=== PATIENT | female | born 1950 | race Caucasian/White ===

== ENCOUNTER 2016-12-15 20:35 | Emergency (ER) | payer MEDICARE, BC ==
[~2016-12-15] VITALS: Ht 165.1 cm; Wt 95.2 kg
--- NOTE | ~2016-12-15 | EKG ---
PATIENT: VIRAJ THEODORE UNIT #: [id number] Ventricular Rate: 120 BPM Atrial Rate: 120 BPM P-R Interval: 144 ms QRS Duration: 80 ms Q-T Interval: 326 ms QTC Calculation(Bezet): 460 ms P [place]: 60 degrees Calculated R [place]: -35 degrees Calculated T [place]: 41 degrees Diagnosis Line: Sinus tachycardia Diagnosis Line: Possible Left atrial enlargement Diagnosis Line: Left axis deviation Diagnosis Line: Nonspecific T wave abnormality Diagnosis Line: Abnormal ECG Diagnosis Line: Diagnosis Line: Confirmed by JN DYSON MD ([id number]) on 12/16/2016 Diagnosis Line: 5:59:35 PM INTERPRETING MD: KARIS SMITH
--- NOTE | ~2016-12-15 | CR72 ---
[facility] A Service of [facility] RADIOLOGY TEXT RESULTS PATIENT: VIRAJ THEODORE LOCATION: [facility] : 50 UNIT #: [id number] AGE: [address]: Dalton Polanco MD SEX: F ORDER DR: [id number] [facility] [address]. [place], [place] [address] [id number] E MR#: [id number] Acc #: [id number] NAME: VIRAJ THEODORE : 1950 SEX: F STUDY DATE/TIME: 12/15/2016 21:26 UNIT: JUWAN ROOM: STUDY DESCRIPTION: CR Chest Single View Portable Attending Physician: Dalton Polanco M.D. Ordering Physician: Dalton Polanco M.D. Primary Care Physician: No Primary Care Physician MEDICAL IMAGING REPORT This report is preliminary unless electronic signature is present EXAM AP portable chest. DATE 12/15/2016 HISTORY Heart racing and shortness of breath for 3 days. Previous smoking history, quit 8 years ago. COMPARISON None FINDINGS Heart size is upper limits normal. Clear lungs. No pleural effusion or pneumothorax. Pulmonary vascular distribution is normal. IMPRESSION Borderline cardiac enlargement. No acute chest findings. Dictated by... Evie Santos M.D. THIS IS AN ELECTRONICALLY VERIFIED REPORT Evie Santos M.D. at 12/16/2016 2:03 PM [facility]/pierre TD: 12/16/2016 07:40 JOB #: [id number] MEDICAL IMAGING REPORT [facility] A Service of [facility] RADIOLOGY TEXT RESULTS PATIENT: VIRAJ THEODORE LOCATION: [facility] : 50 UNIT #: [id number] AGE: [address]: Dalton Polanco MD SEX: F ORDER DR: Page 1 of 1 COPY
[2016-12-15 21:43] LABS: BASOPHIL% 0.5 % (0-2.5); EOSINOPHIL# 0.2 X10e3 (0-0.7); EOSINOPHIL% 2.7 % (0.0-7.0); HEMATOCRIT 40.6 % (35.0-45.0); HEMOGLOBIN 13.3 gm/dL (12.0-16.0); LYMPHOCYTE# 2.6 X10e3 (1.0-3.5); LYMPHOCYTE% 37.9 % (17.0-45.0); MEAN CORPUSCULAR HEMOGLOBIN 29.4 PG (28-34); MEAN CORPUSCULAR HGB CONC 32.7 g/dL (30-36); MEAN PLATELET VOLUME 9.2 FL (6.5-11.5); MONOCYTE# 0.6 X10e3 (0-1.0); MONOCYTE% 8.3 % (3.0-12.0); NEUTROPHIL# 3.4 X10e3 (1.5-7.1); NEUTROPHIL% 50.6 % (40-75); PLATELET COUNT 206 X10e3 (140-420); RED CELL DISTRIBUTION WIDTH 12.8 % (11.0-15.5); WHITE BLOOD COUNT 6.8 X10e3 (4.0-10.5)
[2016-12-15 21:49] LABS: DIFF IND NO
[2016-12-15 22:00] LABS: POC - CKMB <1.0 ng/mL (0.0-7.9); POC - TROPONIN <0.05 ng/mL (<=0.05)
[2016-12-15 22:06] LABS: BILIRUBIN, DIRECT 0.1 mg/dL (0.0-0.2); BILIRUBIN,INDIRECT 0.1 mg/dL (0.0-0.9); BILIRUBIN,TOTAL 0.2 mg/dL (0.2-2.0); BUN/CREATININE RATIO 28.57; CREATININE SERUM 0.7 mg/dL (0.6-1.4); GLOM FILT RATE Estimated 90.3 mL/min (>60); POTASSIUM 4.2 mmol/L (3.5-5.1); PROTEIN TOTAL SERUM 6.9 g/dL (6.0-8.3)
[2016-12-15 22:39] LABS: URINE SOURCE CLEAN CATCH
[2016-12-15 22:43] LABS: URINE APPEARANCE CLEAR; URINE BILIRUBIN NEG (NEG); URINE BLOOD NEG (NEG); URINE COLOR YELLOW; URINE GLUCOSE NEG (NEG); URINE KETONE NEG (NEG); URINE LEUKOCYTE ESTERASE NEG (NEG); URINE NITRATE NEG (NEG); URINE PH 5.5 (5-8); URINE PROTEIN NEG (NEG); URINE SPECIFIC GRAVITY 1.023 (1.003-1.035); URINE UROBILINOGEN 0.2 MG/DL (NEG)
[2016-12-15 22:47] LABS: CULTURE INDICATED? NO
[2016-12-16 00:58] LABS: POC - CKMB <1.0 ng/mL (0.0-7.9); POC - TROPONIN <0.05 ng/mL (<=0.05)
== END 2016-12-16 01:30 | disposition home or self-care (01) ==
LOC: CED 20:35
PROVIDERS: Emergency Medicine
DX: F41.1 Generalized anxiety disorder (principal)
CPT/HCPCS: 36415; 71010; 80048; 80076; 81003; 82553; 84443; 84484; 85025; 93005; 96361; 96374; 99285; J2060